=== PATIENT | female | born 1945 | race Caucasian/White ===

== ENCOUNTER → 2016-09-28 | Outpatient (CLI) | payer OTHER ==
[~2016-09-28] MED LIST: ASCA500 PO; CALC500C3 PO; CEPH500C2 PO; COD1000C; COD1OIL4 PO; HYDR-5688 PO; OPTIRAY 320 IV PRN
--- NOTE | 2016-09-28 13:57 | DIAGNOSTIC IMAGING REPORT ---
ABDOMEN AND PELVIS CT WITH IV AND ORAL CONTRAST CT DOSE: 346.31 mGycm HISTORY: Hernia K43.9 Ventral [id number] TECHNIQUE: Multiaxial CT images of the abdomen and pelvis were performed following the use of intravenous and oral contrast. COMPARISON STUDY: None. FINDINGS: Lung bases are clear. Liver is uniform. Several small hypodensities suggestive of small cysts. Spleen is uniform. Pancreas is unremarkable. Several nonobstructing right renal calcifications. No evidence for hydronephrosis. Ventral hernia periumbilical location evident maximum transaxial defect measuring 3.4 cm. This contains a short segment of transverse colon. This is a nonobstructive finding. No evidence of bowel distention or obstructive change. Moderate office chronic change abdominal aorta with no evidence for aneurysm. Bladder is midline. There are no contained calcifications. Uterus is anteflexed. IMPRESSION: Periumbilical hernia/ventral hernia containing a short segment loop of transverse colon. 2. This a nonobstructive finding. 3. Maximum transverse dimension is 3.4 cm. 4. Several nonobstructing renal calcifications. Electronically signed by: Prasanna Melendez M.D. 09/28/2016 1:55 PM Dictated Date/Time: 09/28/2016 1:51 PM
== END | disposition home or self-care (01) ==
LOC: C.CTS 13:15
PROVIDERS: ATTEND Surgery
DX: K43.9 Ventral hernia without obstruction or gangrene (principal); K42.9 Umbilical hernia without obstruction or gangrene; N28.89 Other specified disorders of kidney and ureter

== ENCOUNTER 2016-10-26 05:27 | Inpatient (IN) | payer OTHER ==
[2016-10-14 13:56] VITALS: BMI 23.0
--- NOTE | 2016-10-14 14:35 | PAT Medication Instructions ---
Service Date Oct 14, 2016. Current Home Medication List Ascorbic Acid (Vitamin C), 1 TAB PO BID Calcium Carbonate (Tums), 1 TAB PO QPM Cod Liver Oil (Cod Liver Oil), 1-2 TSP PO BID Medication Instructions For Your Scheduled Surgery - Hold the following medications 2 weeks prior to surgery: Cod Liver Oil (Cod Liver Oil), 1-2 TSP PO BID - Hold following medications the morning of surgery: Ascorbic Acid (Vitamin C), 1 TAB PO BID - Take the following medications as scheduled the night before surgery: Calcium Carbonate (Tums), 1 TAB PO QPM Ascorbic Acid (Vitamin C), 1 TAB PO BID Nothing to eat or drink after midnight If you have any questions please call us at [phone] or [phone] or [phone]
[2016-10-14 15:19] LABS: BASO % 0.4 %; BASO ABS # 0.02 K/uL (0-0.2); COMPLETE YES; EOS % 1.3 %; HEMATOCRIT 39.2 % (37-47); IG% 0.2 %; LYMPH % 25.5 %; MEAN CELL VOLUME 95.1 fL (80-100); MEAN CORPUSCULAR HEMOGLOBIN 32.3 pg (25-34); MEAN CORPUSCULAR HGB CONC 33.9 g/dl (32-36); MONO % 7.8 %; NEUT % 64.8 %; PLATELET COUNT 220 K/uL (130-400); RED BLOOD COUNT 4.12 M/uL (4.2-5.4); WHITE BLOOD COUNT 5.48 K/uL (4.8-10.8)
[2016-10-14 15:41] LABS: BUN/CREATININE RATIO 23.7 (10-20); CALCIUM 9.2 mg/dl (8.5-10.1); CREATININE 0.88 mg/dl (0.60-1.20); POTASSIUM 3.9 mmol/L (3.5-5.1)
[~2016-10-26] VITALS: Ht 162.6 cm; Wt 62.7 kg
[2016-10-26] VITALS (10 sets, daily range): BP systolic 106–149; BP diastolic 64–94; PULSE 53–74; TEMP 36.2–36.7; O2SAT 96–100; Ht 162.6 cm; Wt 62.7 kg
[~2016-10-26 05:27] MED LIST changes: -CEPH500C2 PO; -COD1000C; -HYDR-5688 PO; -OPTIRAY 320 IV PRN
[2016-10-26] MEDS ORDERED: LACTATED RINGER'S 1000ML 1,000 ML IV SCH (06:00)
[2016-10-26] MEDS ORDERED: CEFAZOLIN 2000 MG/60 ML D5W IV SCH (06:00)
[2016-10-26] MEDS ORDERED: LIDOCAINE HCL 1% 20 ML VIAL ONE (06:37)
[2016-10-26] MEDS ORDERED: CEFAZOLIN SOD 1 GM VIAL ONE (06:37)
[2016-10-26] MEDS ORDERED: BUPIVACAINE 0.5 % 5 MG/1 ML MPF 30ML VIAL ONE (06:38)
[2016-10-26] MEDS ORDERED: PROPOFOL IV EMULSION 10 MG/ML 20 ML VIAL IV ONE (06:39)
[2016-10-26] MEDS ORDERED: DEXAMETHASONE SOD INJ 4 MG/ML VIAL ONE (06:39)
[2016-10-26] MEDS ORDERED: FENTANYL CITRATE INJ 50 MCG/1 ML 2 ML VIAL ONE ×2 (06:39→07:38)
[2016-10-26] MEDS ORDERED: MIDAZOLAM HCL 1 MG/ML 2ML VIAL ONE (06:39)
[2016-10-26] MEDS ORDERED: ROCURONIUM BROMIDE 10 MG/ML 5 ML VIAL ONE (06:39)
[2016-10-26] MEDS ORDERED: LIDOCAINE HCL 2% 2 ML VIAL (20MG/ML) ONE (06:39)
[2016-10-26] MEDS ORDERED: ONDANSETRON INJ 2 MG/ML 2 ML VIAL ONE ×2 (06:39→07:41)
[2016-10-26] MEDS ORDERED: NEOSTIGMINE METHYLSULFATE 5 MG/5 ML SYR ONE (06:39)
[2016-10-26] MEDS ORDERED: GLYCOPYRROLATE INJ 0.2 MG/ML VIAL ONE ×2 (06:39→07:41)
--- NOTE | 2016-10-26 06:48 | History & Physical Bridge Note ---
H&P Re-Evaluation Bridge Note: I have examined the patient, reviewed the History & Physical and in the interval since the performance of the History & Physical I have noted the following changes of clinical significance: No changes noted
[2016-10-26] MEDS ORDERED: PHENYLEPHRINE 100MCG/ML 5ML SYR ONE (07:41)
[2016-10-26] MEDS ORDERED: EpHEDrine SULFATE 50MG/5ML SYR ONE (07:41)
[2016-10-26] MEDS ORDERED: EpHEDrine SULFATE INJ 50 MG/ML AMP IV PRN (08:00)
[2016-10-26] MEDS ORDERED: PHENYLEPHRINE 100MCG/ML 5ML SYR IV PRN (08:00)
[2016-10-26] MEDS ORDERED: HYDROmorphone INJ 2 MG/ML SYR/VIAL IV PRN (08:00)
[2016-10-26] MEDS ORDERED: ATROPINE SULFATE 0.1 MG/ML 5ML SYR IV PRN (08:00)
[2016-10-26] MEDS ORDERED: ONDANSETRON INJ 2 MG/ML 2 ML VIAL IV PRN ×2 (08:00→08:30)
--- NOTE | 2016-10-26 08:28 | [facility] Post Operative Brief Note ---
Immediate Operative Summary Operative Date October 26, 2016. Pre-Operative Diagnosis Ventral hernia Post-Operative Diagnosis same as preop recurrent incisional hernia Procedure(s) Performed Laparoscopic Incisional Hernia Repair with mesh Surgeon Dr. Howe Lead Nuclear Medicine Technologist Surgeon(s) Bishnu Wang PA-C Estimated Blood Loss 10 cc Findings 5 cm defect, used 15 cm surgimesh to repair Specimens none, as per surgeon Drains none Anesthesia gen Complication(s) None Disposition Recovery Room / PACU
[2016-10-26] MEDS ORDERED: PROMETHAZINE HCL INJ 25 MG in SODIUM CHLORIDE 0.9% 50ML 50 ML IV PRN (08:30)
[2016-10-26] MEDS ORDERED: HYDROmorphone INJ 1 MG/ML SYR IV PRN ×2 (08:30)
[2016-10-26] MEDS ORDERED: HYDROCODONE/ACETAMOPHEN 5/325MG TAB PO PRN ×2 (08:30)
--- NOTE | 2016-10-26 09:07 | OPERATIVE REPORT ---
DATE OF OPERATION: 10/26/2016 PREOPERATIVE DIAGNOSIS: Recurrent incisional hernia. POSTOPERATIVE DIAGNOSIS: Same. NAME OF OPERATION: Laparoscopic recurrent incisional hernia repair. STAFF SURGEON: Dr. Howe. CLAY STRUCTURE BUILDER AND SERVICER: Maico El PA-C. ANESTHESIA: General. OPERATION AND FINDINGS: PROCEDURE: The patient was brought in the operating room and placed on the operating table in supine position. Pneumatic stockings, Richardson catheter, orogastric tube were placed. Her abdomen was prepped and draped in usual fashion. Using 0.5% plain Marcaine, all incisions were anesthetized. Incision was made in the left upper quadrant carrying dissection down, entering the abdominal cavity under visualization with mild difficulty placing an 11 mm port, producing pneumoperitoneum. Under visualization four 5 mm ports were placed, 2 on the left, 2 on the right. The patient's hernia contents which on CAT scan were colon and small bowel, reduced spontaneously with a small amount of omentum adherent which was easily taken down. At this point, measuring the defect it was 5 cm. We chose a 15 cm piece of Surgimesh which had tacking sutures placed at 4 corners of 0 Ethibond. The mesh was then rolled and placed into the abdomen and then spread out. The polypropylene was toward the fascia. The silicone was toward the bowel. Using small punctures the Ethibond sutures were brought up through the abdominal wall using suture passer and then the central Prolene suture brought up through the defect to bring the mesh up to the abdominal wall with an excellent fit. The Ethibond sutures were secured and then the edges of the mesh tacked using the absorbable tacker. A second row was placed as an inner row with good result. The Prolene suture was removed. All ports were then removed. The pneumoperitoneum reduced. The fascia at the left upper quadrant closed using 0 Vicryl suture. Skin was reapproximated using 5-0 Prolene suture for the larger incisions and Dermabond for the puncture sites. The left puncture site was closed using 4-0 nylon. Dressings were applied and patient transferred to recovery room in stable condition. I attest to the content of the Intraoperative Record and any orders documented therein. Any exceptio ns are noted below.
[2016-10-26] MEDS ORDERED: PROMETHAZINE HCL INJ 12.5 MG in SODIUM CHLORIDE 0.9% 50ML 50 ML IV PRN (09:15)
--- NOTE | 2016-10-26 10:06 | Medical Consult ---
Consultation Date of Consultation: October 26, 2016. Attending Physician: Delano Howe M.D. Reason for Consultation: Postop Medical Management History of Present Illness Patient seen and examined. 71 year old female with no significant PMHx if seen in consultation for postop medical management following ventral hernia repair by Dr. Howe. Patient reports feeling well. She states she has no pain at this time. She denies fevers, chills, URI symptoms, chest pain, SOB, nausea, vomiting , diarrhea, dysuria, calf pain and edema. Last BM was this morning. She reports she had a "blood clot" following a . She states that she could tell her leg looked funny. She reports that she was told to take aspirin for a few days and the problem went away. She apparently had no diagnostic testing. Past Medical/Surgical History Medical Problems: (1) No pertinent past medical history Status: Chronic Surgical Problems: (1) H/O breast surgery Status: Chronic (2) H/O hernia repair Status: Chronic (3) H/O wisdom tooth extraction Status: Chronic (4) H/O: Status: Chronic (5) History of appendectomy Status: Chronic (6) History of cataract surgery Status: Chronic Family History Diabetes mellitus FH: cancer Social History Smoking Status: Never Smoker Alcohol Use: none Housing Status: lives alone Allergies Coded Allergies: No Known Allergies (Unverified , 10/26/16) Current Inpatient Medications Current Inpatient Medications Medications (Trade) Dose Ordered Sig/Kaylan Route Start Time Stop Time Status Last Admin Dose Admin Lactated Ringer's 1,000 ml @ 15 mls/hr Q24H IV 10/26/16 06:00 10/27/16 05:59 10/26/16 06:11 15 MLS/HR Cefazolin Sodium (Ancef 2000mg/60 ml D5W) 60 ml @ 100 mls/hr PREOP IV 10/26/16 06:00 10/26/16 18:00 10/26/16 06:55 100 MLS/HR Hydromorphone HCl (Dilaudid Inj) 0.5 mg Q5M PRN IV 10/26/16 08:00 10/26/16 13:00 Ondansetron HCl (Zofran Inj) 4 mg ONE PRN IV 10/26/16 08:00 10/26/16 13:00 Ephedrine Sulfate (EpHEDrine SULFATE INJ) 5 mg Q5M PRN IV 10/26/16 08:00 10/26/16 13:00 Atropine Sulfate (Atropine Sulfate 0.1MG/Ml Inj) 0.5 mg Q1M PRN IV 10/26/16 08:00 10/26/16 13:00 Phenylephrine HCl 100 mcg 100 mcg Q5M PRN IV 10/26/16 08:00 10/26/16 13:00 Lactated Ringer's 1,000 ml @ 75 mls/hr [id number] IV 10/26/16 08:28 11/25/16 08:27 UNV Cefazolin Sodium/ Dextrose (Ancef Iv/D5 50ml) 55 ml @ 100 mls/hr Q8H IV 10/26/16 08:30 11/05/16 08:29 UNV Hydromorphone HCl (Dilaudid Inj) 0.5 mg Q3H PRN IV 10/26/16 08:30 11/09/16 08:29 Hydromorphone HCl (Dilaudid Inj) 1 mg Q3H PRN IV 10/26/16 08:30 11/09/16 08:29 Acetaminophen/ Hydrocodone Bitart (Avon 5/325 Tab) 1 tab Q4 PRN PO 10/26/16 08:30 11/09/16 08:29 Acetaminophen/ Hydrocodone Bitart 2 tab 2 tab Q4 PRN PO 10/26/16 08:30 11/09/16 08:29 Promethazine HCl/ Sodium Chloride (Phenergan Inj/ Nss 50ml) 51 ml @ 204 mls/hr Q6H PRN IV 10/26/16 08:30 11/25/16 08:29 Ondansetron HCl (Zofran Inj) 4 mg Q6H PRN IV 10/26/16 08:30 11/25/16 08:29 Ketorolac Tromethamine (Toradol Inj) 30 mg Q6H IV. 10/26/16 08:30 10/26/16 23:00 UNV Senna/Docusate Sodium 1 tab 1 tab BID PO 10/26/16 13:00 11/25/16 12:59 UNV Promethazine HCl/ Sodium Chloride (Phenergan Inj/ Nss 50ml) 50.5 ml @ 202 mls/hr Q6H PRN IV 10/26/16 09:15 11/25/16 09:14 Review of Systems Constitutional: No chills, No fever Eyes: No worsening of vision ENT: No nasal symptoms Respiratory: No cough, No shortness of breath Cardiovascular: No chest pain, No edema, No palpitations Abdomen: No constipation, No diarrhea, No nausea, No pain, No vomiting Musculoskeletal: No calf pain, No swelling Genitourinary - Female: No dysuria Neurologic: No numbness/tingling, No vertigo Psychiatric: No anxiety Endocrine: No fatigue Hematologic / Lymphatic: No abnormal bleeding/bruising, No clotting problems Integumentary: No itch, No rash Allergic / Immunologic: No environmental allergies Physical Exam Date Time Temp Pulse Resp B/P Pulse Ox O2 Delivery O2 Flow Rate FiO2 10/26/16 09:20 73 16 130/75 98 Room Air 10/26/16 09:10 36.3 71 16 131/77 98 Room Air 10/26/16 09:00 76 16 137/82 100 Nasal Cannula 3 10/26/16 08:50 79 16 138/82 100 Nasal Cannula 3 10/26/16 08:40 80 16 142/80 100 Nasal Cannula 3 10/26/16 08:30 36.6 94 16 148/91 100 Nasal Cannula 3 10/26/16 05:45 36.7 73 16 149/75 99 Room Air General Appearance: + pertinent finding (Pleasant WD/WN 71 year old female lying in bed in NAD with daughter at bedside ) Head: normocephalic, atraumatic Eyes: PERRL, EOMI, sclerae normal ENT: hearing grossly normal, pharynx normal Neck: supple, no JVD Respiratory/Chest: chest non-tender, lungs clear, normal breath sounds, no respiratory distress, no accessory muscle use Cardiovascular: regular rate, rhythm, no edema, no gallop, no JVD, no murmur, normal peripheral pulses Abdomen/GI: normal bowel sounds, soft, + tenderness (mild), + pertinent finding (abdominal binder intact ) Extremities/Musculoskelatal: no calf tenderness, normal capillary refill, no pedal edema Neurologic/Psych: alert, oriented x 3, + pertinent finding (no focal deficits noted on gross exam ) Skin: normal color, warm/dry, no rash Lymphatic: no adenopathy Assessment & Plan VENTRAL HERNIA REPAIR -POD#[address] Howe -Management as per primary team to include- pain control, bowel regimen, DVT prophylaxis, incentive spirometry, wound care -EBL 10cc -Follow H&H daily for postop anemia, preop was 13.3 &39.2 -CBC, PRP, Mg daily -No chronic medical problems. Does take some OTC supplements, may resume when okay with general surgery. DVT PROPHYLAXIS: per primary team DISPO:per primary team Patient seen in collaboration with Dr. Mcclain Thank you for this consultation. We will follow the patient with you during their hospital stay. You can reach a [facility] via pager @ . ADDENDUM: This is a 71 year old female with no significant past medical history presented for a ventral hernia repair. Doing fine with no significant pain. No other issues to note. No significant findings on physical, vital signs stable. Plan is to check an H/H as well as a BMP in AM.
[2016-10-26] MEDS: LACTATED RINGER'S 1000ML 1,000 ML IV SCH ×2 (10:46→19:31)
--- NOTE | 2016-10-26 10:55 | Anesthesiology Progress Note ---
Anesthesia Post Op Note Date & Time October 26, 2016 at 10:55 Vital Signs Pain Intensity: 0 Vital Signs Past 12 Hours Date Time Temp Pulse Resp B/P Pulse Ox O2 Delivery O2 Flow Rate FiO2 10/26/16 10:30 36.2 61 18 109/64 96 Room Air 10/26/16 10:05 53 18 138/76 98 Room Air 10/26/16 09:30 36.5 58 16 131/81 99 Room Air 10/26/16 09:30 Room Air 99.0 10/26/16 09:30 Room Air 10/26/16 09:20 73 16 130/75 98 Room Air 10/26/16 09:10 36.3 71 16 131/77 98 Room Air 10/26/16 09:00 76 16 137/82 100 Nasal Cannula 3 10/26/16 08:50 79 16 138/82 100 Nasal Cannula 3 10/26/16 08:40 80 16 142/80 100 Nasal Cannula 3 10/26/16 08:30 36.6 94 16 148/91 100 Nasal Cannula 3 10/26/16 05:45 36.7 73 16 149/75 99 Room Air Notes Mental Status: alert / awake / arousable, participated in evaluation Pt Amnestic to Procedure: Yes Nausea / Vomiting: adequately controlled Pain: adequately controlled Airway Patency, RR, SpO2: stable & adequate BP & HR: stable & adequate Hydration State: stable & adequate Anesthetic Complications: no major complications apparent
[2016-10-26] MEDS: DOCUSATE SODIUM/SENNA 50/8.6MG TAB PO SCH ×2 (13:30→21:30)
[2016-10-26] MEDS ORDERED: KETOROLAC TROMETHAMINE 15 MG/ML VIAL IV. SCH (14:00)
[2016-10-26] MEDS: CEFAZOLIN IV 1,000 MG in DEXTROSE 5% 50ML 50 ML IV SCH ×2 (15:55→23:51)
[2016-10-27 03:54] VITALS: BP 107/67; PULSE 60; TEMP 36.4; O2SAT 98
[2016-10-27 05:26] LABS: MEAN CELL VOLUME 94.6 fL (80-100); MEAN CORPUSCULAR HEMOGLOBIN 31.4 pg (25-34); MEAN CORPUSCULAR HGB CONC 33.1 g/dl (32-36); MEAN PLATELET VOLUME 9.7 fL (7.4-10.4); PLATELET COUNT 180 K/uL (130-400); WHITE BLOOD COUNT 7.84 K/uL (4.8-10.8)
[2016-10-27 06:19] LABS: BUN/CREATININE RATIO 21.1 (10-20); CALCIUM 8.6 mg/dl (8.5-10.1); CREATININE 0.55 mg/dl (0.60-1.20); MAGNESIUM 1.8 mg/dl (1.8-2.4); PHOSPHORUS 3.2 mg/dl (2.5-4.9); POTASSIUM 3.8 mmol/L (3.5-5.1)
--- NOTE | 2016-10-27 06:36 | Surgery Progress Note ---
Surgery Progress Note Date of Service October 27, 2016. Subjective + pain controlled, No nausea, No vomiting afeb, vss minimal complaints, taking no pain med Objective Vital Signs: Date Time Temp Pulse Resp B/P Pulse Ox O2 Delivery O2 Flow Rate FiO2 10/27/16 03:54 36.4 60 16 107/67 98 Room Air 10/27/16 00:00 Room Air 10/26/16 23:20 36.5 56 16 122/68 100 Room Air 10/26/16 20:10 36.7 63 18 116/74 97 Room Air 10/26/16 16:00 97 Room Air 10/26/16 15:30 36.4 66 16 106/64 97 Room Air 10/26/16 12:30 36.6 74 19 139/79 98 Room Air 10/26/16 11:30 36.4 61 19 127/94 96 Room Air 10/26/16 10:30 36.2 61 18 109/64 96 Room Air 10/26/16 10:05 53 18 138/76 98 Room Air 10/26/16 09:30 36.5 58 16 131/81 99 Room Air 10/26/16 09:30 Room Air 99.0 10/26/16 09:30 Room Air 10/26/16 09:20 73 16 130/75 98 Room Air 10/26/16 09:10 36.3 71 16 131/77 98 Room Air 10/26/16 09:00 76 16 137/82 100 Nasal Cannula 3 10/26/16 08:50 79 16 138/82 100 Nasal Cannula 3 10/26/16 08:40 80 16 142/80 100 Nasal Cannula 3 10/26/16 08:30 36.6 94 16 148/91 100 Nasal Cannula 3 General Appearance: no apparent distress Respiratory/Chest: no respiratory distress Abdomen: non distended (binder in place) Incision(s): intact Laboratory Results: Results Past 24 Hours Test 10/27/16 05:10 Range/Units White Blood Count 7.84 4.8-10.8 K/uL Red Blood Count 3.70 4.2-5.4 M/uL Hemoglobin 11.6 12.0-16.0 g/dL Hematocrit 35.0 37-47 % Mean Corpuscular Volume 94.6 80-100 fL Mean Corpuscular Hemoglobin 31.4 25-34 pg Mean Corpuscular Hemoglobin Concent 33.1 32-36 g/dl RDW Standard Deviation 45.4 36.4-46.3 fL RDW Coefficient of Variation 13.0 11.5-14.5 % Platelet Count 180 130-400 K/uL Mean Platelet Volume 9.7 7.4-10.4 fL Sodium Level 144 136-145 mmol/L Potassium Level 3.8 3.5-5.1 mmol/L Chloride Level 109 98-107 mmol/L Carbon Dioxide Level 28 21-32 mmol/L Anion Gap 7.0 3-11 mmol/L Blood Urea Nitrogen 12 7-18 mg/dl Creatinine 0.55 0.60-1.20 mg/dl Est Creatinine Clear Calc Drug Dose 83.4 ml/min Estimated GFR () 110.9 Estimated GFR (Non- 95.7 BUN/Creatinine Ratio 21.1 10-20 Random Glucose 100 70-99 mg/dl Calcium Level 8.6 8.5-10.1 mg/dl Phosphorus Level 3.2 2.5-4.9 mg/dl Magnesium Level 1.8 1.8-2.4 mg/dl Assessment & Plan 10/27/16- s/p laparoscopic incisional hernia repair with mesh- has binder in place. Tolerating pain so far. cont IV atbx, mobilize pt- possible d/c 10/28 , tomorrow if cont to do well- d/c michael
[2016-10-27 07:53] VITALS: BP 122/78; PULSE 62; TEMP 36.7; O2SAT 97
[2016-10-27] MEDS: CEFAZOLIN IV 1,000 MG in DEXTROSE 5% 50ML 50 ML IV SCH ×3 (08:05→23:39)
[2016-10-27] MEDS: DOCUSATE SODIUM/SENNA 50/8.6MG TAB PO SCH ×2 (08:05→21:36)
[2016-10-27 10:32] VITALS: O2SAT 97
[2016-10-27 11:59] VITALS: BP 132/78; PULSE 63; TEMP 36.4; O2SAT 97
[2016-10-27] MEDS ORDERED: HYDR-5688 PO (13:18)
[2016-10-27] MEDS ORDERED: CEPH500C2 PO (13:18)
--- NOTE | 2016-10-27 13:21 | Discharge Instructions ---
Discharge Instructions Date of Service October 27, 2016. Admission Reason for Admission: Ventral Hernia Discharge Discharge Diagnosis / Problem: incisional hernia Discharge Goals Goal(s): Decrease discomfort, Improve function, Improve disease control Activity Recommendations Activity Limitations: as noted below Lifting Limitations: no more than 10 pounds Exercise/Sports Limitations: until after follow-up appointment May Resume Sexual Activity: after follow-up appointment Shower/Bathe: tomorrow (shower only) Driving or Machine Use: 1 week SPECIAL CARE INSTRUCTIONS: * Cover incisions and change daily for comfort/drainage. try to wear binder as much as possible * avoid constipation- may use Senokot S and Milk of magnesia twice daily as directed on package * May use ibuprofen for pain as tolerated. * Expect some swelling and bruising. Call your doctor if: * Temperature above 101 degrees * Pain not relieved by pain medicine ordered * There is increased drainage or redness from any incision * * You have any unanswered questions or concerns [phone]. FOLLOW UP VISIT: If not already scheduled, please call the office for a follow-up visit. for 1-2 weeks- checkup and suture removal OFFICE PHONE NUMBER: Dr. Howe Office . Current Hospital Diet Patient's current hospital diet: Regular Diet Discharge Diet Recommended Diet: Regular Diet Procedures Procedures Performed: Laparoscopic Incisional Hernia Repair with mesh Pending Studies Studies pending at discharge: no Medical Emergencies . Who to Call and When: Medical Emergencies: If at any time you feel your situation is an emergency, please call 911 immediately. . Non-Emergent Contact Non-Emergency issues call your: Primary Care Provider, Surgeon . "Provider Documentation" section prepared by Delano Howe. . VTE Core Measure Inpt VTE Proph given/why not?: Unfractionated heparin SQ, SCD's
[2016-10-27] MEDS ORDERED: IBUPROFEN 600 MG TAB PO PRN (13:30)
--- NOTE | 2016-10-27 13:58 | Progress Note ---
Internal Med Progress Note Date of Service: October 27, 2016. Provider Documentation: SUBJECTIVE: The Patient was seen and examined Complains of some lower abdominal pain Nio Chest pain,palpitation,sob OBJECTIVE: Vital Signs-as noted below Exam: General-No distress at rest Eyes-normal ENT-normal Neck-Supple Lungs-clear to auscultate bilaterally Heart-Regular,no murmur appreciated Abdomen-Soft ,tender,mildly distended Bowel sound sluggish Extremities-no edema Neuro-AAOx3 Lab data as noted below. ASSESSMENT & PLAN: S/P VENTRAL HERNIA REPAIR -POD# [address] Howe -Management as per primary team to include- pain control, bowel regimen, DVT prophylaxis, incentive spirometry, wound care -complains of some pain locally -denies any other symptoms DVT PROPHYLAXIS: per primary team DISPO:per primary team Vitals,Labs reviewed Medically stable Vital Signs: Date Time Temp Pulse Resp B/P Pulse Ox O2 Delivery O2 Flow Rate FiO2 10/27/16 11:59 36.4 63 22 132/78 97 Room Air 10/27/16 10:32 97 Room Air 10/27/16 07:53 36.7 62 20 122/78 97 Room Air 10/27/16 07:50 Room Air 10/27/16 03:54 36.4 60 16 107/67 98 Room Air 10/27/16 00:00 Room Air 10/26/16 23:20 36.5 56 16 122/68 100 Room Air 10/26/16 20:10 36.7 63 18 116/74 97 Room Air 10/26/16 16:00 97 Room Air 10/26/16 15:30 36.4 66 16 106/64 97 Room Air Lab Results: Results Past 24 Hours Test 10/27/16 05:10 10/27/16 13:28 Range/Units White Blood Count 7.84 4.8-10.8 K/uL Red Blood Count 3.70 4.2-5.4 M/uL Hemoglobin 11.6 12.0-16.0 g/dL Hematocrit 35.0 37-47 % Mean Corpuscular Volume 94.6 80-100 fL Mean Corpuscular Hemoglobin 31.4 25-34 pg Mean Corpuscular Hemoglobin Concent 33.1 32-36 g/dl RDW Standard Deviation 45.4 36.4-46.3 fL RDW Coefficient of Variation 13.0 11.5-14.5 % Platelet Count 180 130-400 K/uL Mean Platelet Volume 9.7 7.4-10.4 fL Sodium Level 144 136-145 mmol/L Potassium Level 3.8 3.5-5.1 mmol/L Chloride Level 109 98-107 mmol/L Carbon Dioxide Level 28 21-32 mmol/L Anion Gap 7.0 3-11 mmol/L Blood Urea Nitrogen 12 7-18 mg/dl Creatinine 0.55 0.60-1.20 mg/dl Est Creatinine Clear Calc Drug Dose 83.4 ml/min Estimated GFR () 110.9 Estimated GFR (Non- 95.7 BUN/Creatinine Ratio 21.1 10-20 Random Glucose 100 70-99 mg/dl Calcium Level 8.6 8.5-10.1 mg/dl Phosphorus Level 3.2 2.5-4.9 mg/dl Magnesium Level 1.8 1.8-2.4 mg/dl Hepatitis C Antibody Screen NEG NEG
[2016-10-27 14:29] LABS: PROTHROMBIN TIME (PATIENT) 10.8 SECONDS (9.0-12.0)
[2016-10-27 15:27] VITALS: BP 130/82; PULSE 62; TEMP 36.3; O2SAT 98
[2016-10-27] MEDS: LACTATED RINGER'S 1000ML 1,000 ML IV SCH (17:13)
[2016-10-27] MEDS: HEPARIN SOD 5000 UNIT/0.5 ML CARP SQ SCH ×2 (20:00→21:35)
[2016-10-27 22:55] VITALS: BP 122/81; PULSE 59; TEMP 36.7; O2SAT 99
--- NOTE | 2016-10-28 06:17 | Surgery Progress Note ---
Surgery Progress Note Date of Service October 28, 2016. Subjective comfortable taking no pain med Objective Vital Signs: Date Time Temp Pulse Resp B/P Pulse Ox O2 Delivery O2 Flow Rate FiO2 10/27/16 23:40 Room Air 10/27/16 22:55 36.7 59 16 122/81 99 Room Air 10/27/16 16:00 Room Air 10/27/16 15:27 36.3 62 16 130/82 98 Room Air 10/27/16 11:59 36.4 63 22 132/78 97 Room Air 10/27/16 10:32 97 Room Air 10/27/16 07:53 36.7 62 20 122/78 97 Room Air 10/27/16 07:50 Room Air General Appearance: no apparent distress Respiratory/Chest: no respiratory distress Abdomen: soft Incision(s): intact Laboratory Results: Results Past 24 Hours Test 10/27/16 14:10 Range/Units Prothrombin Time 10.8 9.0-12.0 SECONDS Prothromb Time International Ratio 1.0 0.9-1.1 Activated Partial Thromboplast Time 25.0 21.0-31.0 SECONDS Partial Thromboplastin Ratio 1.0 Assessment & Plan 10/28/16- overall doing well- tolerating some food, has some pain but does not want pain med- cont IV atbx- monitor GI function 10/27/16- s/p laparoscopic incisional hernia repair with mesh- has binder in place. Tolerating pain so far. cont IV atbx, mobilize pt- possible d/c 10/28 , tomorrow if cont to do well- d/c rodriguez 10/27/16- s/p laparoscopic incisional hernia repair with mesh- has binder in place. Tolerating pain so far. cont IV atbx, mobilize pt- possible d/c 10/28 , tomorrow if cont to do well- d/c rodriguez
--- NOTE | 2016-10-28 06:53 | Surgery Progress Note ---
Surgery Progress Note Date of Service October 28, 2016. Subjective + feeling well wants to go home positive flatus Objective Vital Signs: Date Time Temp Pulse Resp B/P Pulse Ox O2 Delivery O2 Flow Rate FiO2 10/27/16 23:40 Room Air 10/27/16 22:55 36.7 59 16 122/81 99 Room Air 10/27/16 16:00 Room Air 10/27/16 15:27 36.3 62 16 130/82 98 Room Air 10/27/16 11:59 36.4 63 22 132/78 97 Room Air 10/27/16 10:32 97 Room Air 10/27/16 07:53 36.7 62 20 122/78 97 Room Air 10/27/16 07:50 Room Air General Appearance: no apparent distress Respiratory/Chest: no respiratory distress Abdomen: soft Incision(s): intact Laboratory Results: Results Past 24 Hours Test 10/27/16 14:10 Range/Units Prothrombin Time 10.8 9.0-12.0 SECONDS Prothromb Time International Ratio 1.0 0.9-1.1 Activated Partial Thromboplast Time 25.0 21.0-31.0 SECONDS Partial Thromboplastin Ratio 1.0 Assessment & Plan 10/28/16- will d/c home 10/28/16- overall doing well- tolerating some food, has some pain but does not want pain med- cont IV atbx- monitor GI function 10/27/16- s/p laparoscopic incisional hernia repair with mesh- has binder in place. Tolerating pain so far. cont IV atbx, mobilize pt- possible d/c 10/28 , tomorrow if cont to do well- d/c rodriguez 10/28/16- overall doing well- tolerating some food, has some pain but does not want pain med- cont IV atbx- monitor GI function 10/27/16- s/p laparoscopic incisional hernia repair with mesh- has binder in place. Tolerating pain so far. cont IV atbx, mobilize pt- possible d/c 10/28 , tomorrow if cont to do well- d/c rodriguez
[2016-10-28] MEDS: CEFAZOLIN IV 1,000 MG in DEXTROSE 5% 50ML 50 ML IV SCH (07:22)
[2016-10-28] MEDS: DOCUSATE SODIUM/SENNA 50/8.6MG TAB PO SCH (07:23)
[2016-10-28] MEDS: HEPARIN SOD 5000 UNIT/0.5 ML CARP SQ SCH (07:30)
[2016-10-28 07:56] VITALS: BP 107/73; PULSE 85; TEMP 36.6; O2SAT 97
[2016-10-28 10:50] VITALS: BP 107/73; PULSE 85; TEMP 36.6; O2SAT 97
--- NOTE | 2016-10-28 16:53 | Progress Note ---
Internal Med Progress Note Date of Service: October 28, 2016. Provider Documentation: SUBJECTIVE: The Patient was seen and examined Complains of some lower abdominal pain No Chest pain,palpitation,sob Remains stable Tolerating diet and ambulation OBJECTIVE: Vital Signs-as noted below Exam: General-No distress at rest Eyes-normal ENT-normal Neck-Supple Lungs-clear to auscultate bilaterally Heart-Regular,no murmur appreciated Abdomen-Soft ,minimally tender,no distension Bowel sound sluggish Extremities-no edema Neuro-AAOx3 Lab data as noted below. ASSESSMENT & PLAN: S/P VENTRAL HERNIA REPAIR -POD# [address] Howe -Management as per primary team to include- pain control, bowel regimen, DVT prophylaxis, incentive spirometry, wound care -complains of some pain locally -denies any other symptoms -clinically improved -medically stable to go home DVT PROPHYLAXIS: per primary team DISPO:per primary team Vitals,Labs reviewed Medically stable Vital Signs: Date Time Temp Pulse Resp B/P Pulse Ox O2 Delivery O2 Flow Rate FiO2 10/28/16 10:50 36.6 85 16 97 Room Air 10/28/16 07:56 36.6 85 16 107/73 97 Room Air 10/28/16 07:45 Room Air 10/27/16 23:40 Room Air 10/27/16 22:55 36.7 59 16 122/81 99 Room Air
--- NOTE | 2016-10-31 10:23 | DISCHARGE SUMMARY ---
PRIMARY DISCHARGE DIAGNOSIS: Recurrent incisional hernia. PROCEDURE PERFORMED: Laparoscopic repair of recurrent incisional hernia. [facility] H[facility]PITAL COURSE: The patient is a 71-year-old female brought in through same day and taken to the operating room for laparoscopic repair of recurrent incisional hernia. The procedure was well tolerated. We used a 15 cm round mesh. She was transferred to the surgical [facility] for observation. By postoperative day #2, she was tolerating diet and oral analgesics. Her abdomen was benign. She was stable for discharge. DISCHARGE INSTRUCTIONS: Discharge home. Follow up with Dr. Howe in 1-2 weeks. Continue to wear abdominal binder as much as possible. DISCHARGE MEDICATIONS: Pioneer 1-2 tablets every 6 hours as needed, Keflex 500 mg p.o. t.i.d. x5 and may resume her home supplements, vitamin C and cod liver oil.
== END 2016-10-28 15:11 | disposition home health service (06) | DRG 355 ==
LOC: ENRESERVDT → ENRESERVTM → C.ACU 05:27 → C.MSN 08:32
PROVIDERS: ADMIT Surgery; ATTEND Surgery
PROC: 0WUF4JZ Supplement Abdominal Wall with Synthetic Substitute, Percutaneous Endoscopic Approach (ICD-10-PCS; principal; 2016-10-26 07:00)
DX: K43.2 Incisional hernia without obstruction or gangrene (principal); Z86.718 Personal history of other venous thrombosis and embolism